=== PATIENT | female | born 1965 | race African-American/Black ===

== ENCOUNTER 2016-12-02 16:17 | Emergency (ER) | payer OTHER ==
--- NOTE | 2016-12-02 16:21 | PDOC ---
Rapid Medical Evaluation Chief Complaint: Head/Neck problem Medical Evaluation: Allergies Allergy/AdvReac Type Severity Reaction Status Date / Time shellfish derived Allergy Intermediate Swelling Verified 12/02/16 16:18 hydromorphone HCl Allergy Mild Hives Verified 12/02/16 16:18 [From Dilaudid] strawberry [[place]] Allergy Mild Hives Verified 12/02/16 16:18 aloe vera Allergy Verified 12/02/16 16:18 codeine [Codeine] Allergy Hives Verified 12/02/16 16:18 12/02/16 16:19 I have performed a brief in-person evaluation The patient presents with a chief complaint of:hit head on handle bar of her walker c/o dizzyness and blurry vision Pertinent physical exam findings:none I have ordered the following:urine The patient will proceed to the ED for further evaluation.
[2016-12-02 16:23] VITALS: BP 144/83; PULSE 70; TEMP 98; BMI 28.8
[2016-12-02] MEDS ORDERED: ACETAMINOPHEN 325 MG TABLET (FP) PO ONE (17:34)
[2016-12-02] MEDS ORDERED: ACETAMINOPHEN 325 MG TABLET (FP) ONE (17:35)
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
== END 2016-12-02 19:21 | disposition home or self-care (01) ==
LOC: JER 16:17
DX: S00.83XA Contusion of other part of head, initial encounter (principal); W22.8XXA Striking against or struck by other objects, initial encounter; Y93.89 Activity, other specified; Y92.89 Other specified places as the place of occurrence of the external cause; I10 Essential (primary) hypertension; E11.9 Type 2 diabetes mellitus without complications; E78.00 Pure hypercholesterolemia, unspecified; D32.9 Benign neoplasm of meninges, unspecified; M12.9 Arthropathy, unspecified; Z87.820 Personal history of traumatic brain injury; R26.89 Other abnormalities of gait and mobility; Z99.89 Dependence on other enabling machines and devices
CPT/HCPCS: 70450-TC; 84703; 99282-25

== ENCOUNTER 2017-11-14 13:55 | Emergency (ER) | payer OTHER ==
[2017-11-14 14:43] VITALS: TEMP 98.3; BMI 32.6
[2017-11-14] MEDS ORDERED: SODIUM CHLORIDE 1,000 ML IV ONE (15:13)
[2017-11-14] MEDS ORDERED: METOCLOPRAMIDE HCL INJECTION 10 MG/2 ML VIAL IVPUSH ONE (15:13)
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
[2017-11-14] MEDS ORDERED: METOCLOPRAMIDE HCL INJECTION 10 MG/2 ML VIAL ONE (15:58)
[2017-11-14 16:05] LABS: BASO % 1.9 % (0-2.0); EOS % 5.2 % (0-4.5); HEMATOCRIT 35.1 % (32.4-45.2); HEMOGLOBIN 11.7 GM/dL (10.7-15.3); LYMPH % 49.6 % (8-40); MCH 27.5 pg (25.7-33.7); MCHC 33.4 g/dl (32.0-36.0); MEAN CELL VOLUME 82.4 fl (80-96); MEAN PLT VOLUME 8.5 fl (7.5-11.1); MONO % 6.8 % (3.8-10.2); NEUT % 36.5 % (42.8-82.8); PLATELET COUNT 311 K/MM3 (134-434); RBC 4.26 M/mm3 (3.60-5.2); RDW 16.4 % (11.6-15.6)
[2017-11-14] MEDS ORDERED: ACETAMINOPHEN/CAFFEINE/BUTALBITAL 1 TAB PO ONE (16:06)
[2017-11-14] MEDS ORDERED: ACETAMINOPHEN/CAFFEINE/BUTALBITAL 1 TAB ONE (16:36)
[2017-11-14 17:52] LABS: ALBUMIN 4.1 g/dl (3.4-5.0); BLOOD UREA NITROGEN 15 mg/dL (7-18); CHLORIDE 106 mmol/L (98-107); GLUCOSE,RANDOM 94 mg/dL (74-106); POTASSIUM 4.9 mmol/L (3.5-5.1); SGOT/AST 60 U/L (15-37); SGPT/ALT 105 U/L (12-78); SODIUM 141 mmol/L (136-145)
[2017-11-14 19:06] LABS: ALK PHOS 73 U/L (45-117); BILIRUBIN,TOTAL 0.2 mg/dL (0.2-1.0); CALCIUM 9.1 mg/dL (8.5-10.1); CREATININE 0.8 mg/dL (0.55-1.02); TOT PROT 7.8 g/dl (6.4-8.2)
[2017-11-14 19:21] LABS: ANION GAP 7 (8-16); CO2 28 mmol/L (21-32)
[2017-11-14 19:32] VITALS: BP 143/81; PULSE 59
--- NOTE | 2017-11-18 00:40 | EKG ---
Test Reason : Blood Pressure : / mmHG Vent. Rate : 064 BPM Atrial Rate : 064 BPM P-R Int : 144 ms QRS Dur : 084 ms QT Int : 436 ms P-R-T Axes : 039 009 006 degrees QTc Int : 449 ms NORMAL SINUS RHYTHM NORMAL ECG WHEN COMPARED WITH ECG OF 11-APR-2016 17:16, T WAVE VARIATION Confirmed by MELISSA CAMPBELL MD ([id number]) on 11/18/2017 12:40:11 AM Referred By: Confirmed By:MELISSA CAMPBELL MD
== END 2017-11-14 19:33 | disposition home or self-care (01) ==
LOC: JER 13:55
PROC: 3E033GC Introduction of Other Therapeutic Substance into Peripheral Vein, Percutaneous Approach (ICD-10-PCS; principal; 2017-11-14)
DX: G40.909 Epilepsy, unspecified, not intractable, without status epilepticus (principal); I10 Essential (primary) hypertension; E78.00 Pure hypercholesterolemia, unspecified; E11.9 Type 2 diabetes mellitus without complications; F03.90 Unspecified dementia, unspecified severity, without behavioral disturbance, psychotic disturbance, mood disturbance, and anxiety; D64.9 Anemia, unspecified; Z21 Asymptomatic human immunodeficiency virus [HIV] infection status; F32.9 Major depressive disorder, single episode, unspecified; Z87.820 Personal history of traumatic brain injury; G43.909 Migraine, unspecified, not intractable, without status migrainosus
CPT/HCPCS: 36415; 80053; 83605; 85025; 93005; 93010; 96374; 99282-25; J7030

== ENCOUNTER 2020-06-29 03:11 | Emergency (ER) | payer OTHER ==
[2020-06-29 03:28] VITALS: BMI 26.7
[2020-06-29 05:25] LABS: EOS % 2.1 % (0-4.5); HEMATOCRIT 23.9 % (32.4-45.2); HEMOGLOBIN 11.3 GM/dL (10.7-15.3); LYMPH % 23.8 % (8-40); MEAN CELL VOLUME 91.2 fl (80-96); MEAN PLT VOLUME 8.5 fl (7.5-11.1); MONO % 7.2 % (3.8-10.2); NEUT % 65.9 % (42.8-82.8); PLATELET COUNT 308 K/MM3 (134-434); RBC 2.62 M/mm3 (3.60-5.2); RDW 16.4 % (11.6-15.6); WHITE BLOOD COUNT 5.7 K/mm3 (4.0-10.0)
[2020-06-29 05:44] LABS: POTASSIUM 3.5 mmol/L (3.5-5.1)
[2020-06-29 05:46] LABS: CALCIUM 8.8 mg/dL (8.5-10.1)
[2020-06-29 05:47] LABS: ALBUMIN 3.8 g/dl (3.4-5.0)
[2020-06-29 05:50] LABS: CREATININE 0.7 mg/dL (0.55-1.3)
[2020-06-29 05:51] LABS: BILIRUBIN,TOTAL 0.2 mg/dL (0.2-1)
[2020-06-29 05:52] LABS: TOT PROT 7.4 g/dl (6.4-8.2)
[2020-06-29 06:05] LABS: MCH 43.1 pg (25.7-33.7); MCHC 47.3 g/dl (32.0-36.0)
[2020-06-29 06:36] VITALS: TEMP 98.2
[2020-06-29] MEDS ORDERED: ACETAMINOPHEN 1000 MG/100 ML VIAL (NON FORMULARY) IVPB ONE (07:55)
[2020-06-29] MEDS ORDERED: ACETAMINOPHEN INJECTION 100 ML IVPB ONE (07:58)
[2020-06-29 08:03] VITALS: BP 123/86; PULSE 71
[2020-06-29] MEDS ORDERED: levETIRAcetam 500 MG TABLET (FP) PO ONE ×2 (09:26→09:30)
[2020-06-29] MEDS ORDERED: TOPIRAMATE 100 MG TABLET PO ONE (09:28)
[2020-06-29] MEDS ORDERED: TOPIRAMATE 25 MG TABLET ONE (09:30)
== END 2020-06-29 09:38 | disposition home or self-care (01) ==
LOC: JER 03:11
PROC: 3E0333Z Introduction of Anti-inflammatory into Peripheral Vein, Percutaneous Approach (ICD-10-PCS; principal; 2020-06-29)
DX: R56.9 Unspecified convulsions (principal); R07.9 Chest pain, unspecified; M79.18 Myalgia, other site
CPT/HCPCS: 36415; 70450-TC; 71046-TC-FY; 72125-TC; 72131-TC; 72192-TC; 80053; 84484; 85025; 93005; 93010; 99285-25; J0131